=== PATIENT | female | born 1990 | race Caucasian/White ===

== ENCOUNTER 2023-11-24 15:35 | Emergency (ER) | payer OTHER ==
--- NOTE | 2023-11-24 15:48 | ERPHSYRPT ---
- History of Present Illness Time Seen by Provider: 11/24/23 15:47 Source: patient Exam Limitations: no limitations Physician History: This is a 33-year-old white female patient who slipped and fell on the ice 2 days ago hitting the back of her head on concrete sidewalk. She did not lose consciousness. However, in the last 2 days she has had persistent, generalized headache with light substantively and nausea. The symptoms are not resolving. Patient is currently on her menstrual period. Patient is not on any anticoagulation therapy. Patient does not have any bleeding or clotting disorders. Patient has been using ibuprofen intermittently without much benefi t. Timing/Duration: day(s) (2) Quality: aching Head Pain Location: global Severity of Pain-Max: mild Severity of Pain-Current: mild (To moderate to moderate) Recent Head Trauma: head trauma > 24 hrs ago Modifying Factors: Improves With: exposure to light, noise Associated Symptoms: nausea/vomiting, sensitive to light, No confusion, No dizziness, No loss of consciousness Previous symptoms: no prior history, no recent treatment Home Medications: Methylphenidate 5 mg [Ritalin 5 MG] 15 mg PO BID 11/24/23 [History] Travel Risk - International Travel Have you traveled outside of the country in past 3 weeks: No - Coronavirus Screening Are you exhibiting any of the following symptoms?: No Close contact with a COVID-19 positive Pt in past 14-21 Days: No - Review of Systems Constitutional: No Symptoms Eyes: No Symptoms Ears, Nose, & Throat: No Symptoms Respiratory: No Symptoms Cardiac: No Symptoms Abdominal/Gastrointestinal: No Symptoms Genitourinary Symptoms: No Symptoms Musculoskeletal: No Symptoms Skin: No Symptoms Neurological: Headache Psychological: No Symptoms Endocrine: No Symptoms Hematologic/Lymphatic: No Symptoms Immunological/Allergic: No Symptoms All Other Systems: Reviewed and Negative - Past Medical History Pertinent Past Medical History: Yes - Nursing Vital Signs Nursing Vital Signs: Initial Vital Signs Temperature 97.3 F 11/24/23 15:46 Pulse Rate 85 11/24/23 15:46 Respiratory Rate 16 11/24/23 15:46 Blood Pressure 131/80 11/24/23 15:46 O2 Sat by Pulse Oximetry 100 11/24/23 15:46 Pain Scale Pain Intensity 7 - Physical Exam General Appearance: no apparent distress, alert, anxiety Eye Exam: PERRL/EOMI, eyes nml inspection Ears, Nose, Throat Exam: normal ENT inspection, moist mucous membranes Neck Exam: normal inspection, non-tender, supple, full range of motion Respiratory Exam: normal breath sounds, lungs clear, airway intact, No chest tenderness, No respiratory distress Cardiovascular Exam: regular rate/rhythm, normal heart sounds, normal peripheral pulses Gastrointestinal/Abdominal Exam: No tenderness Back Exam: normal inspection, normal range of motion, No CVA tenderness, No vertebral tenderness Extremity Exam: normal inspection, normal range of motion, pelvis stable Mental Status Exam: alert, oriented x 3, cooperative materials scientist Exam: normal hearing, normal speech, PERRL Coordination/Gait Exam: normal finger to nose, normal gait, normal cerebellar function Skin Exam: normal color, warm, dry Lymphatic Exam: No adenopathy SpO2 Interpretation: normal O2 Delivery: Room Air - Course Nursing assessment & vital signs reviewed: Yes Ordered Tests: Active Orders 24 hr Category Date Time Status HEAD WITHOUT CONTRAST [CT] Stat Exams 11/24/23 16:37 Taken - Progress Progress: improved Progress Note: 11/24/23 16:36 This patient's medical issue is 1 of low complexity. Level complex in the workup performed is based on review of the patient's medical history, review of the patient's medication list, review the patient's drug allergy list, history present illness and physical findings on examination. The workup includes CT scan of the head without contrast. 11/24/23 18:30 CT scan of the head without contrast was interpreted by the radiologist and I reviewed the impression. The impression states normal head CT Blood Culture(s) Obtained: No Antibiotics given: No Counseled pt/family regarding: diagnosis, need for follow-up, rad results Medical Desision Making - Diagnostic Testing Radiological Interpretation: Reviewed by me, Teleradiologist Report - Risk of complications The pt has a mod risk of morbidity or mortality based on: Need for prescription drug management - Departure Departure Disposition: Home Clinical Impression: Headache, Postconcussion syndrome Condition: Stable Critical Care Time: No Referrals: MATT HERNANDEZ MD [Primary Care Provider] - Follow up/PCP as directed Additional Instructions: Drink plenty fluids. Use Tylenol and ibuprofen for pain control. Call your primary care provider for further evaluation management
[2023-11-24 15:57] VITALS: PULSE 85; RESP 16; TEMP 97.3
[2023-11-24 18:03] VITALS: BP 107/92; O2SAT 97
--- NOTE | 2023-11-25 08:36 | XRAY ---
Indication: "Worst headache." Multiple contiguous axial images obtained through the head without contrast. Comparison: None. Normal appearing brain parenchyma, ventricles, and bony calvarium. Visualized paranasal sinuses and mastoid air cells are clear. Impression: Normal CT head without contrast exam.
== END 2023-11-24 18:47 | disposition home or self-care (01) ==
LOC: ED 15:35
DX: G44.319 Acute post-traumatic headache, not intractable (principal); F07.81 Postconcussional syndrome; R11.0 Nausea; Z79.899 Other long term (current) drug therapy
CPT/HCPCS: 70450; 99283